=== PATIENT | female | born 1970 | race Caucasian/White ===

== ENCOUNTER 2017-06-12 09:48 | Emergency (ER) | payer OTHER ==
[~2017-06-12] VITALS: Ht 152.4 cm; Wt 90.7 kg
[~2017-06-12 09:48] MED LIST: METF850T PO
[2017-06-12 09:55] VITALS: BP 145/93
--- NOTE | 2017-06-12 09:59 | NUR ---
PT AMBULATED TO BED 3.
--- NOTE | 2017-06-12 10:03 | NUR ---
47F BIB SELF C/O RECTAL PAIN, PT STATES "INSIDE" RECTUM, CRAMPING, RADIATES TO LOWER ABDOMEN, 11/26 X 8 DAYS; NO BLEEDING NOTED TO SITE AT THIS TIME; PT STATES SAW PCP, AND WAS TOLD SHE HAD HEMORRHOIDS; PT STATES HAS PAIN WHEN SHE SITS DOWN AND "FEELS LIKE THERE IS A BALL"; PT STATES NO N/V/D AT THIS TIME; PT AA&OX4, BL LUNG SOUNDS CLEAR, RR EVEN/UNLABORED, SKIN IS WARM/DRY/INTACT WITH EVEN AND STEADY GAIT; PT RESTING IN BED, WITH HOB ELEVATED AND IN LOWEST POSITION; POSITIONED FOR COMFORT; ER MD MADE AWARE OF STATUS. WILL CONTINUE TO MONITOR.
--- NOTE | 2017-06-12 10:09 | NUR ---
ER MD DR. DENNIS EVALUATING PT AT BEDSIDE. RN BRYCE CHAPERONED ER MD DR. DENNIS FOR FEMALE PATIENT RECTAL EXAM.
[2017-06-12] MEDS ORDERED: KETOROLAC 60 MG/2 ML VIAL IM ONE (10:15)
[2017-06-12 10:43] VITALS: BP 122/60
--- NOTE | 2017-06-12 10:43 | NUR ---
Patient discharged with v/s stable. Written and verbal after care instructions given and explained. Patient alert, oriented and verbalized understanding of instructions. Ambulatory with steady gait. All questions addressed prior to discharge. ID band removed. Patient advised to follow up with PMD. Rx of MOTRIN 800MG TAB, COLACE 100MG CAP & EQUALINE HEMORRHOIDAL RECTAL CREAM given. Patient educated on indication of medication including possible reaction and side effects. Opportunity to ask questions provided and answered.
== END 2017-06-12 10:43 | disposition home or self-care (01) ==
LOC: MED 09:48
DX: K64.9 Unspecified hemorrhoids (principal); E11.9 Type 2 diabetes mellitus without complications; I10 Essential (primary) hypertension; Z90.49 Acquired absence of other specified parts of digestive tract; Z79.84 Long term (current) use of oral hypoglycemic drugs
CPT/HCPCS: 81002; 81025; 96372; 99283; J1885

== ENCOUNTER 2019-05-19 15:00 | Inpatient (IN) | payer OTHER ==
[~2019-05-19] VITALS: Ht 152.4 cm; Wt 92.5 kg
[2019-05-19 15:23] VITALS: BP 138/90
--- NOTE | 2019-05-19 15:27 | NUR ---
pt taken to bed 2.
[2019-05-19] MEDS ORDERED: NACL 0.9% 500 ML IV ONE (15:28)
[2019-05-19] MEDS ORDERED: KETOROLAC 30 MG/ML VIAL IVP ONE (15:30)
[2019-05-19] MEDS ORDERED: ONDANSETRON 4 MG/2 ML VIAL IVP ONE (15:30)
--- NOTE | 2019-05-19 15:40 | NUR ---
LAB AT BEDSIDE
[2019-05-19 15:50] LABS: BASOPHILS % (AUTO) 0.5 % (0.0-2.0); EOSINOPHILS # (AUTO) 0.2 K/uL (0-0.4); EOSINOPHILS % (AUTO) 1.8 % (0.0-4.0); HEMATOCRIT 43.2 % (36-48); HEMOGLOBIN 14.4 g/dL (12.0-16.0); LYMPHOCYTES # (AUTO) 2.5 K/uL (2.5-16.5); LYMPHOCYTES % (AUTO) 27.8 % (20.5-51.1); MEAN CORPUSCULAR HEMOGLOBIN 29 pg (27-31); MEAN CORPUSCULAR HGB CONC 33 g/dL (33-37); MEAN CORPUSCULAR VOLUME 87.7 fL (80-94); MONOCYTES # (AUTO) 0.5 K/uL (0.8-1.0); NEUTROPHILS # (AUTO) 5.9 K/uL (1.8-7.7); NEUTROPHILS % (AUTO) 64.9 % (42.2-75.2); PLATELET COUNT (AUTO) 268 K/uL (140-450); RED BLOOD CELL COUNT(AUTO) 4.93 MIL/uL (4.20-5.40); RED CELL DISTRIBUTION WIDTH 13.3 % (11.6-13.7); WHITE BLOOD COUNT (AUTO) 9.1 K/uL (4.8-10.8)
--- NOTE | 2019-05-19 15:51 | NUR ---
PT TAKEN TO CT VIA WHEELCHAIR
--- NOTE | 2019-05-19 16:00 | NUR ---
49 Y/F PRESENTS TO ED WITH RUQ ABD PAIN 10/10 X 2 DAY, PAIN RADIATES TO R FLANK. C/O NAUSEA AND VOMITING, DENIES DIARRHEA. PT REPORTS CONSTIPATION AND REPORTS STRAINING WHEN HAVING A BM. PT EXPERIENCED DYURIA X 1 DAY. DULL PAIN, ABD SOFT AND SYMMETRICAL. LUNGS CLEAR. HX- MURMUR, DM, HTN, HYPERCHOLESTEROLEMIA, RX- LIPITOR, METFORMIN, LISINOPRIL NKDA
[2019-05-19 16:13] LABS: ALBUMIN 4.5 g/dL (3.4-5.0); ANION GAP 15.2 (8-16); CARBON DIOXIDE 26.8 mmol/L (21-32); TOTAL BILIRUBIN 0.3 mg/dL (0.0-1.0)
--- NOTE | 2019-05-19 16:39 | NUR ---
NADR, REPORTS IMPROVED PAIN 5/10, AND DECREASED NAUSEA.
[2019-05-19] MEDS ORDERED: metroNIDAZOLE 500 MG/NS PREMIX 100 ML IV ONE (17:25)
--- NOTE | 2019-05-19 17:41 | NUR ---
XR AT BEDSIDE.
[2019-05-19 17:54] LABS: APPEARANCE,URINE CLEAR (CLEAR); BILIRUBIN,URINE NEGATIVE (NEGATIVE); BLOOD, URINE 1+ (NEGATIVE); COLOR,URINE YELLOW (YELLOW); LEUKOCYTE ESTERASE ,URINE NEGATIVE (NEGATIVE); NITRITE, URINE NEGATIVE (NEGATIVE); UGLUCOSE NEGATIVE (NEGATIVE)
[2019-05-19] MEDS ORDERED: NACL 0.9% 1,000 ML IV SCH (17:59)
[2019-05-19] MEDS ORDERED: DOCUSATE SODIUM 100 MG GELCAP PO PRN (18:00)
[2019-05-19] MEDS ORDERED: ONDANSETRON 4 MG/2 ML VIAL IM/IVP PRN (18:00)
[2019-05-19] MEDS ORDERED: ACETAMINOPHEN 325 MG TAB PO PRN (18:00)
[2019-05-19 18:12] LABS: PROTHROMBIN TIME 9.8 secs (10.8-13.4)
[2019-05-19] MEDS ORDERED: CARV12.5 PO ×2 (18:19→19:26)
[2019-05-19] MEDS ORDERED: SIMV20TA1 PO (18:19)
[2019-05-19] MEDS ORDERED: HYDR-132 PO (18:19)
[2019-05-19 18:29] LABS: CALCIUM OXALATE CRYSTALS,UR 0-10 /HPF (None Seen); WBC,URINE 0-5 /HPF (0-5)
--- NOTE | 2019-05-19 18:35 | NUR ---
PT ARRIVED ON THE UNIT PT AMBULATED FROM THE GURNEY TO THE BED. PT HAS IV FLAGYL INFUSING FROM THE ER IV SITE PATENT AND SHOWS NO SIGN OF INFILTRATION OR INFLAMMATION. ALL SAFETY MEASURES ARE IN PLACE. ORIENTED THE PATIENT TO THE UNIT AND ROOM. INTRODUCED MYSELF TO PATIENT. WILL CONTINUE TO MONITOR. VITALS 124/68 TEMP 98.1 PULSE 82 RESP 16 02 STAT 98. Addendum: 05/19/19 at 1855 by Christin Subramanian RN CALL LIGHT WITHIN REACH
--- NOTE | 2019-05-19 18:38 | NUR ---
Patient will be admitted to care of DR. SANDOVAL. Admited to Med/Surg. Will go to [id number]. Belongings list completed. Report to VEE. FLAGYL STILL INFUSING.
[2019-05-19] MEDS ORDERED: DEXTROSE 50% 50 ML SYR IVP PRN (18:45)
[2019-05-19] MEDS ORDERED: INSULIN LISPRO SLIDING SCALE 100 UNITS/ML VIAL SUBQ PRN (18:45)
[2019-05-19 18:56] LABS: AMYLASE 65 U/L (25-115); LACTATE DEHYDROGENASE 254 U/L (81-234); LIPASE 103 U/L (73-393); MAGNESIUM 2.1 mg/dL (1.8-2.4); PHOSPHORUS 4.3 mg/dL (2.5-4.9); THYROID STIMULATING HORMONE 1.58 uIU/mL (0.34-3.74)
[2019-05-19] MEDS ORDERED: METF850T PO (19:26)
--- NOTE | 2019-05-19 19:30 | NUR ---
RECEIVED BEDSIDE REPORT FROM DAY SHIFT NURSE. PATIENT IS AWAKE, ALERT, AND COOPERATIVE. ADMITTING DIAGNOSIS SMALL BOWEL OBSTRUCTION. RESPIRATION EVEN UNLABORED ON ROOM AIR. NO DISTRESS NOTED. SKIN IS WARM AND DRY. IV PATENT AND INTACT. HEART RATE REGULAR. S1&S2 NOTED. LUNGS SOUNDS CLEAR ON AUSCULTATION. BOWEL SOUNDS PRESENT IN ALL QUADRANT. ABDOMEN SOFT AND TENDER TO TOUCH. VITALS WERE TAKEN. MRSA SCREEN DONE. ORIENT PATIENT TO THE ROOM, STAFF, AND CALL LIGHT. ALL SAFETY MEASURES IN PLACE. BED IS AT LOW POSITION. CALL LIGHT WITHIN REACH AND VERBALIZES ITS USE. WILL CONTINUE TO MONITOR.
--- NOTE | 2019-05-19 19:32 | NUR ---
ENDORSED PT TO PM RN PT AWAKE IN BED PT APPEARS STABLE AND IN NO APPARENT DISTRESS. ALL SAFETY MEASURES ARE IN PLACE. ENDORSED ADMISSION TO PATIENT
--- NOTE | 2019-05-19 20:00 | NUR ---
INITIAL ASSESSMENT DONE. VITALS WERE TAKEN. WILL CONTINUE TO MONITOR.
[2019-05-19] MEDS: BLOOD GLUCOSE MONITORING 1 DEV DEV FS SCH (20:17)
[2019-05-19] MEDS: metFORMIN 850 MG TAB PO SCH (20:25)
[2019-05-19] MEDS: DEXT 5% / NACL 0.45% 1,000 ML IV SCH (20:25)
--- NOTE | 2019-05-19 20:25 | NUR ---
ALL SCHEDULED MEDS WERE GIVEN PER ORDER. NO ASE NOTED. WILL CONTINUE TO MONITOR.
[2019-05-19] MEDS: SIMVASTATIN 20 MG TAB PO SCH (20:26)
[2019-05-19] MEDS: CARVEDILOL 12.5 MG TAB PO SCH (20:26)
[2019-05-19] MEDS ORDERED: metroNIDAZOLE 500 MG/NS PREMIX 100 ML IV SCH (21:00)
[2019-05-19 21:44] VITALS: BP 131/77
[2019-05-19] MEDS: KETOROLAC 15 MG/ML VIAL IVP PRN (22:22)
--- NOTE | 2019-05-19 22:22 | NUR ---
PATIENT COMPLAINED OF ABDOMINAL PAIN /. PRN PAIN MED ADMINISTERED PER ORDER. WILL CONTINUE TO MONITOR.
--- NOTE | 2019-05-19 22:30 | NUR ---
12 FR SALEM SUMP TUBE INSERTED VIA RIGHT NARIS. CONFIRM PLACEMENT BY AUSCULTATING. PATIENT TOLERATED WITHOUT INCIDENT. XRAY FOR PLACEMENT OF THE TUBE ALSO ORDERED. WILL CONTINUE TO MONITOR.
[2019-05-20] VITALS: BP 126/70
--- NOTE | 2019-05-20 | NUR ---
VITALS WERE TAKEN. PATIENT IN STABLE CONDITION. NO DISTRESS NOTED. WILL CONTINUE TO MONITOR.
[2019-05-20] MEDS: metroNIDAZOLE 500 MG/NS PREMIX 100 ML IV SCH ×3 (01:07→17:06)
--- NOTE | 2019-05-20 02:06 | NUR ---
CHECKED PATIENT. PATIENT SLEEPING RESPIRATION EVEN UNLABORED ON ROOM AIR. NO DISTRESS NOTED. WILL CONTINUE TO MONITOR.
[2019-05-20] MEDS: DEXT 5% / NACL 0.45% 1,000 ML IV SCH ×3 (02:27→14:16)
--- NOTE | 2019-05-20 03:00 | NUR ---
PLACED PATIENT IN LOW INTERMITTENT SUCTION FOR NGT. PATIENT TOLERATING IT WELL. NO DISTRESS NOTED. WILL CONTINUE TO MONITOR.
[2019-05-20 04:00] VITALS: BP 116/62
--- NOTE | 2019-05-20 04:13 | NUR ---
VITALS WERE TAKEN. PATIENT IN STABLE CONDITION. PATIENT COMPLAINED OF CONSTIPATION. PRN COLACE GIVEN PER ORDER. WILL CONTINUE TO MONITOR.
[2019-05-20] MEDS: BLOOD GLUCOSE MONITORING 1 DEV DEV FS SCH ×4 (06:03→20:53)
--- NOTE | 2019-05-20 07:06 | NUR ---
ENDORSED PATIENT TO DAY SHIFT NURSE. PATIENT IN STABLE CONDITION.
[2019-05-20 07:09] LABS: BASOPHILS % (AUTO) 0.3 % (0.0-2.0); EOSINOPHILS # (AUTO) 0.1 K/uL (0-0.4); EOSINOPHILS % (AUTO) 2.2 % (0.0-4.0); HEMOGLOBIN 11.6 g/dL (12.0-16.0); LYMPHOCYTES # (AUTO) 1.4 K/uL (2.5-16.5); LYMPHOCYTES % (AUTO) 30.3 % (20.5-51.1); MEAN CORPUSCULAR HEMOGLOBIN 29 pg (27-31); MEAN CORPUSCULAR HGB CONC 33 g/dL (33-37); MEAN CORPUSCULAR VOLUME 88.6 fL (80-94); MONOCYTES # (AUTO) 0.4 K/uL (0.8-1.0); MONOCYTES % (AUTO) 7.9 % (1.7-9.3); NEUTROPHILS # (AUTO) 2.8 K/uL (1.8-7.7); NEUTROPHILS % (AUTO) 59.3 % (42.2-75.2); PLATELET COUNT (AUTO) 184 K/uL (140-450); RED BLOOD CELL COUNT(AUTO) 3.95 MIL/uL (4.20-5.40); RED CELL DISTRIBUTION WIDTH 13.6 % (11.6-13.7); WHITE BLOOD COUNT (AUTO) 4.8 K/uL (4.8-10.8)
--- NOTE | 2019-05-20 07:12 | NUR ---
RECEIVED BEDSIDE REPORT FROM NIGHT NURSE. PATIENT IN BED AWAKE, ALERT, ORIENTEDX4. NGT IN PLACE TO RIGHT NARES. IV INTACT AND PATENT TO LEFT HAND. BED IN LOW POSITION. SAFETY MEASURES IN PLACE. PLANS OF CARE DISCUSSED. CALL LIGHT WITHIN REACH.
[2019-05-20 07:39] LABS: ANION GAP 10.9 (8-16); CREATININE 0.7 mg/dL (0.6-1.3); POTASSIUM 3.9 mmol/L (3.5-5.1)
[2019-05-20 07:41] LABS: PHOSPHORUS 3.6 mg/dL (2.5-4.9)
[2019-05-20 07:47] LABS: CHOL/HDL RATIO 4.2 (1-4.5)
[2019-05-20 07:56] LABS: MAGNESIUM 1.8 mg/dL (1.8-2.4)
[2019-05-20 08:00] VITALS: BP 130/84
[2019-05-20] MEDS ORDERED: HYDROCHLOROTHIAZIDE PO SCH (09:00)
[2019-05-20] MEDS ORDERED: LISINOPRIL PO SCH (09:00)
[2019-05-20] MEDS ORDERED: [UNRECOGNIZED DRUG - OTHER] PO SCH (09:00)
--- NOTE | 2019-05-20 09:00 | NUR ---
PATIENT AMBULATED FROM THE ROOM TO THE HALLWAY WITH STEADY GAIT.
--- NOTE | 2019-05-20 09:30 | NUR ---
NGT REMOVED ORDERED PER DR. RIDLEY. PT ABLE TO TOLERATE. WILL CONTINUE TO MONITOR.
[2019-05-20] MEDS: LISINOPRIL 10 MG TAB PO SCH (09:49)
[2019-05-20] MEDS: metFORMIN 850 MG TAB PO SCH ×2 (09:49→20:48)
[2019-05-20] MEDS: LACTOBACILLUS RHAMNOSUS GG 1 EACH CAP PO SCH (09:50)
[2019-05-20] MEDS: HYDROCHLOROTHIAZIDE 25 MG TAB PO SCH (09:50)
[2019-05-20] MEDS: CARVEDILOL 12.5 MG TAB PO SCH ×2 (09:50→20:48)
--- NOTE | 2019-05-20 10:11 | NUR ---
XRAY AT BEDSIDE.
--- NOTE | 2019-05-20 10:25 | NUR ---
PATIENT HAS BEEN SCREENED AND CATEGORIZED MODERATE NUTRITION RISK. PATIENT WILL BE SEEN WITHIN 3-5 DAYS OF ADMISSION. 05/22/19 - 05/24/19 MYRA VAUGHN MBA, RD
[2019-05-20] MEDS: KETOROLAC 15 MG/ML VIAL IVP PRN (11:05)
--- NOTE | 2019-05-20 11:12 | NUR ---
PATIENT IS AAOX4. ABLE TO MAKE NEEDS KNOWN. NO S/S OF DISTRESS NOTED. DENIES ANY NAUSEA/VOMITING. CALL LIGHT WITHIN REACH.
[2019-05-20 12:00] VITALS: BP 105/56
--- NOTE | 2019-05-20 13:00 | NUR ---
PATIENT IS AAOX4. ABLE TO MAKE NEEDS KNOWN. NO S/S OF DISTRESS NOTED. CALL LIGHT WITHIN REACH.
--- NOTE | 2019-05-20 15:00 | NUR ---
PATIENT IS ASLEEP, ABLE TO WAKE BY NAME. DENIES ANY PAIN OR DISCOMFORT AT THIS TIME. CALL LIGHT WITHIN REACH.
[2019-05-20 16:00] VITALS: BP 119/72
--- NOTE | 2019-05-20 17:00 | NUR ---
PATIENT ALERT, AWAKE, VERBALLY RESPONSIVE. NO S/S OF DISTRESS NOTED. FAMILY AT BEDSIDE.
--- NOTE | 2019-05-20 18:58 | NUR ---
PATIENT IN STABLE CONDITION. WILL ENDORSE TO NIGHT NURSE FOR CONTINUITY OF CARE.
--- NOTE | 2019-05-20 19:20 | NUR ---
PATIENT IS IN STABLE CONDITION. REPORT GIVEN TO NIGHT NURSE FOR CONTINUITY OF CARE.
--- NOTE | 2019-05-20 19:21 | NUR ---
RECEIVED REPORT FROM DAY SHIFT NURSE. PT LYING IN BED. AAOX4. NO C/O PAIN OR SOB. ON ROOM AIR. FAMILY AT BEDSIDE. IV TO LEFT HAND #22G, D5 1/2NS AT 130 ML, INFUSING WELL. SKIN INTACT. DISCUSSED PLAN OF CARE, PT VERBALIZED UNDERSTANDING. SAFETY PRECAUTION IN PLACE. CALL LIGHT WITHIN REACH.
[2019-05-20 20:00] VITALS: BP 130/80
[2019-05-20] MEDS: SIMVASTATIN 20 MG TAB PO SCH (20:48)
--- NOTE | 2019-05-20 20:50 | NUR ---
PT C/O HEADACHE. TYLENOL 650 MG PO GIVEN. BLOOD SUGAR 124, NO INSULIN COVERAGE.
[2019-05-21] VITALS: BP 109/59
--- NOTE | 2019-05-21 | NUR ---
D/C IV LINE TO LEFT HAND D/T LEAKING. INSERTED NEW LINE TO RIGHT HAND #22G, GOOD FLUSH AND BLOOD RETURN. PT TOLERATED PROCEDURE WELL.
--- NOTE | 2019-05-21 02:40 | NUR ---
PT SLEEPING, EASILY AROUSABLE. NO S/S OF RESP DISTRESS. NO S/S OF PAIN OR DISCOMFORT. IVF INFUSING WELL. CALL LIGHT WITHIN REACH.
[2019-05-21] MEDS: metroNIDAZOLE 500 MG/NS PREMIX 100 ML IV SCH ×2 (02:58→09:12)
[2019-05-21] MEDS: DEXT 5% / NACL 0.45% 1,000 ML IV SCH ×2 (02:59→09:25)
[2019-05-21 04:00] VITALS: BP 112/60
--- NOTE | 2019-05-21 04:30 | NUR ---
PT SLEEPING. RESP EVEN AND UNLABORED. NO S/S OF PAIN OR DISCOMFORT. CALL LIGHT WITHIN REACH.
--- NOTE | 2019-05-21 06:00 | NUR ---
SPOKE WITH X-RAY TECH, HE SAID PT DOESN'T NEED TO BE NPO FOR XRAY ABDOMEN SERIES.
[2019-05-21] MEDS: BLOOD GLUCOSE MONITORING 1 DEV DEV FS SCH ×2 (06:57→11:30)
[2019-05-21 07:03] LABS: BASOPHILS % (AUTO) 0.2 % (0.0-2.0); EOSINOPHILS # (AUTO) 0.1 K/uL (0-0.4); EOSINOPHILS % (AUTO) 3.4 % (0.0-4.0); HEMATOCRIT 33.4 % (36-48); LYMPHOCYTES # (AUTO) 1.6 K/uL (2.5-16.5); LYMPHOCYTES % (AUTO) 39.2 % (20.5-51.1); MEAN CORPUSCULAR HEMOGLOBIN 29 pg (27-31); MEAN CORPUSCULAR HGB CONC 33 g/dL (33-37); MEAN CORPUSCULAR VOLUME 89.5 fL (80-94); MONOCYTES # (AUTO) 0.3 K/uL (0.8-1.0); MONOCYTES % (AUTO) 7.2 % (1.7-9.3); PLATELET COUNT (AUTO) 180 K/uL (140-450); RED BLOOD CELL COUNT(AUTO) 3.73 MIL/uL (4.20-5.40); RED CELL DISTRIBUTION WIDTH 13.4 % (11.6-13.7); WHITE BLOOD COUNT (AUTO) 4.1 K/uL (4.8-10.8)
[2019-05-21 07:19] LABS: ANION GAP 10.8 (8-16); CREATININE 0.6 mg/dL (0.6-1.3); POTASSIUM 3.8 mmol/L (3.5-5.1)
--- NOTE | 2019-05-21 07:26 | NUR ---
ENDORSED PT TO DAY SHIFT NURSE. PT IN STABLE CONDITION.
--- NOTE | 2019-05-21 07:31 | NUR ---
RECEIVED BEDSIDE REPORT FROM NIGHTSHIFT NURSE. PT RESTING IN BED UPON ARRIVAL. ABLE TO MAKE NEEDS KNOWN. RESPIRATIONS EVEN AND UNLABORED WITH NO SOB OR RESPIRATORY DISTRESS. SKIN WARM AND DRY TO TOUCH. IV SITE IN RIGHT HAND 22G IS CLEAN, DRY, AND INTACT. SAFETY MEASURES IN PLACE. WILL CONTINUE TO MONITOR.
[2019-05-21 07:35] LABS: MAGNESIUM 1.6 mg/dL (1.8-2.4); PHOSPHORUS 3.3 mg/dL (2.5-4.9)
[2019-05-21 08:00] VITALS: BP 119/93
[2019-05-21] MEDS: HYDROCHLOROTHIAZIDE 25 MG TAB PO SCH (09:13)
[2019-05-21] MEDS: LACTOBACILLUS RHAMNOSUS GG 1 EACH CAP PO SCH (09:13)
--- NOTE | 2019-05-21 09:13 | NUR ---
ADMINISTERED SCHED MED PRESCRIBED PER MD ORDER. PT TOLERATED WELL. MEDICATION EDUCATION PERFORMED. PT VERBALIZED UNDERSTANDING. SAFETY MEASURES IN PLACE. WILL CONTINUE TO MONITOR.
[2019-05-21] MEDS: metFORMIN 850 MG TAB PO SCH (09:14)
[2019-05-21] MEDS: CARVEDILOL 12.5 MG TAB PO SCH (09:14)
[2019-05-21] MEDS: LISINOPRIL 10 MG TAB PO SCH (09:14)
--- NOTE | 2019-05-21 09:23 | NUR ---
PT CALLED AND COMPLAINED OF A MILD HEADACHE. PRN PAIN MEDICATION ADMINISTERED PRESCRIBED PER MD ORDER. MEDICATION EDUCATION PERFORMED. PT TOLERATED WELL AND VERBALIZED UNDERSTANDING. SAFETY MEASURES IN PLACE. WILL CONTINUE TO MONITOR.
--- NOTE | 2019-05-21 10:21 | NUR ---
HOURLY ROUNDING. PT RESTING IN BED UPON ARRIVAL. ABLE TO MAKE NEEDS KNOWN. RESPIRATIONS EVEN AND UNLABORED WITH NO SOB OR RESPIRATORY DISTRESS. SKIN WARM AND DRY TO TOUCH. SAFETY MEASURES IN PLACE. WILL CONTINUE TO MONITOR
--- NOTE | 2019-05-21 10:45 | NUR ---
PHYSICIAN PUT IN AN ORDER FOR DC IF PT TOLERATES LUNCH. PT MADE AWARE. WILL CONTINUE TO MONITOR
[2019-05-21] MEDS ORDERED: MAGNESIUM OXIDE 400 MG TAB PO SCH (11:13)
[2019-05-21] MEDS ORDERED: DOCU-299 PO (11:23)
--- NOTE | 2019-05-21 11:41 | NUR ---
ADMINISTERED SCHED MED PRESCRIBED PER MD ORDER. PT TOLERATED WELL. MEDICATION EDUCATION PERFORMED. PT VERBALIZED UNDERSTANDING. SAFETY MEASURES IN PLACE. WILL CONTINUE TO MONITOR.
[2019-05-21 11:45] VITALS: BP 146/92
[2019-05-21 12:00] VITALS: BP 122/78
--- NOTE | 2019-05-21 13:30 | NUR ---
PT RESTING IN BED UPON ARRIVAL. ABLE TO MAKE NEEDS KNOWN. RESPIRATIONS EVEN AND UNLABORED WITH NO SOB OR RESPIRATORY DISTRESS. SKIN WARM AND DRY TO TOUCH. WENT OVER DC INSTRUCTIONS WITH PT. PT SIGNED APPROPRIATE DOCUMENTS. INSTRUCTED PT TO VISIT ED FOR ANY SIGNS OF DISTRESS. PT VERBALIZED UNDERSTANDING. INTACT IV CANNULA AND ID BAND REMOVED. TELE MONITOR REMOVED. PT REFUSED FLU VACCINE AND N/A FOR PNA VACCINE. PT GATHERED ALL OF HER BELONGINGS AND CHANGED INTO HER OWN CLOTHES. PT ESCORTED TO HER PRIVATE VEHICLE. PT IS STABLE.
== END 2019-05-21 13:05 | disposition home or self-care (01) | DRG 389 ==
LOC: MED 15:00 → MTU 18:06
PROVIDERS: ADMIT General Practice; ATTEND General Practice
PROC: 0D9670Z Drainage of Stomach with Drainage Device, Via Natural or Artificial Opening (ICD-10-PCS; principal; 2019-05-20)
DX: K56.51 Intestinal adhesions [bands], with partial obstruction (principal); J98.11 Atelectasis; D64.9 Anemia, unspecified; E78.00 Pure hypercholesterolemia, unspecified; I10 Essential (primary) hypertension; E11.65 Type 2 diabetes mellitus with hyperglycemia; K76.0 Fatty (change of) liver, not elsewhere classified; E78.5 Hyperlipidemia, unspecified; N28.1 Cyst of kidney, acquired; E66.01 Morbid (severe) obesity due to excess calories; K56.7 Ileus, unspecified; Z68.39 Body mass index [BMI] 39.0-39.9, adult; Z79.84 Long term (current) use of oral hypoglycemic drugs; Z90.49 Acquired absence of other specified parts of digestive tract; Z90.710 Acquired absence of both cervix and uterus
CPT/HCPCS: 36415; 71045; 74018; 74250; 80048; 80053; 81001; 82150; 82948; 83036; 83605; 83615; 83690; 83735; 83880; 84100; 84134; 84443; 85025; 85610; 85730; 87040; 87081; 87086; 93005; 96374; 96375; 99285; G0482; J1885; J2405; J3490; Q0092

== ENCOUNTER 2022-01-16 09:02 | Emergency (ER) | payer OTHER ==
[~2022-01-16] VITALS: Ht 152.4 cm; Wt 83.9 kg
[~2022-01-16 09:02] MED LIST changes: +CARV12.5 PO; +DOCU-299 PO; +HYDR-2849 PO; +METF-713 PO; -METF850T PO; +SIMV-372 PO
[2022-01-16 09:20] VITALS: BP 140/80
--- NOTE | 2022-01-16 11:26 | NUR ---
51 y/o female bib self, pt presents to ed with c/o left hand first digit pain that started today after smashing digit in car door. area appears to have redness with slight swelling. a&o x4 with even and steady gait. pmh: htn, dm2 nka
[2022-01-16] MEDS ORDERED: IBUP-2213 PO (12:10)
[2022-01-16 13:06] VITALS: BP 134/70
== END 2022-01-16 13:07 | disposition home or self-care (01) ==
LOC: MED 09:02
DX: S60.012A Contusion of left thumb without damage to nail, initial encounter (principal); E11.9 Type 2 diabetes mellitus without complications; I10 Essential (primary) hypertension; Z79.899 Other long term (current) drug therapy; Z98.890 Other specified postprocedural states; Z90.49 Acquired absence of other specified parts of digestive tract; Z79.84 Long term (current) use of oral hypoglycemic drugs; W23.0XXA Caught, crushed, jammed, or pinched between moving objects, initial encounter; Y93.89 Activity, other specified; Y92.89 Other specified places as the place of occurrence of the external cause; Y99.8 Other external cause status
CPT/HCPCS: 73130; 99283